=== PATIENT | female | born 1995 | race Caucasian/White ===

== ENCOUNTER 2016-06-05 14:55 | Emergency (ER) | payer MEDICAID ==
[2014-09-09 09:25] VITALS: BMI 37.6
[~2016-06-05 14:55] MED LIST: CETIRIZINE HCL5 MG PO
== END 2016-06-05 15:39 | disposition home or self-care (01) ==
LOC: D.ER 14:55
DX: K21.9 Gastro-esophageal reflux disease without esophagitis (principal); F17.200 Nicotine dependence, unspecified, uncomplicated

== ENCOUNTER → 2016-06-17 09:21 | Outpatient (CLI) | payer MEDICAID ==
[2014-09-09 09:25] VITALS: BMI 37.6
[2016-06-17 10:26] LABS: ALBUMIN 3.5 g/dL (3.4-5.0); ALKALINE PHOSPHATASE 63 U/L (46-116); ALT (SGPT) 23 U/L (10-68); BILIRUBIN - TOTAL 0.32 mg/dL (0.2-1.3); CALC OSMOLALITY 278 mosm/kg (275-300); CALCIUM 8.7 mg/dL (8.5-10.1); CARBON DIOXIDE 26.2 mmol/L (21.0-32.0); CHLORIDE - SERUM 107 mmol/L (98-107); CREATININE - SERUM 0.7 mg/dL (0.6-1.3); GLUCOSE 98 mg/dL (74-106); POTASSIUM - SERUM 4.1 mmol/L (3.5-5.1); SODIUM 140 mmol/L (136-145); UREA NITROGEN 13 mg/dL (7-18); eGFR NON AFRICAN AMERICAN > 90 mL/min (90-120)
[2016-06-17 10:33] LABS: BASOPHILS 0.5 % (0.0-2.0); EOSINOPHILS 6.9 % (0-7); HEMATOCRIT 43.4 % (36.0-48.0); HEMOGLOBIN 14.8 g/dL (12-16); IMMATURE GRANULOCYTES 0.2 % (0-5); LYMPHOCYTES 26.6 % (15-50); MCH 28.7 pg (26.0-34.0); MCHC 34.1 g/dL (31.0-37.0); MCV 84.3 fL (80.0-100.0); MEAN PLATELET VOLUME 10.2 fL (7.4-10.4); MONOCYTES 7.8 % (2-11); PLATELET COUNT 296 10x3/uL (130-400); RBC 5.15 10x6/uL (4.00-5.40); RDW 13.2 % (11.5-14.5); WBC 8.8 10x3/uL (4.8-10.8)
[2016-06-17 10:57] LABS: HCG SERUM NEGATIVE (NEGATIVE)
== END | disposition home or self-care (01) ==
LOC: D.LAB 08:30 → D.US 09:00 → D.LAB 09:21 → D.NM 09:30
PROVIDERS: Surgery
DX: R10.9 Unspecified abdominal pain (principal); R11.0 Nausea

== ENCOUNTER 2017-02-04 16:54 | Outpatient (CLI) | payer MEDICAID ==
[~2017-02-04] VITALS: Ht 165.1 cm; Wt 152.4 kg
[2017-02-04] MEDS ORDERED: PRENATAL COMPLE1 TAB PO (17:14)
[2017-02-04] MEDS ORDERED: ACETAMINOPHEN325 MG PO (17:15)
[2017-02-04 17:18] VITALS: BP 114/56; Ht 165.1 cm; Wt 152.4 kg
[2017-02-04 18:09] LABS: BASOPHILS 0.1 % (0-2); EOSINOPHILS 1.3 % (0-7); HEMATOCRIT 34.7 % (36.0-48.0); IMMATURE GRANULOCYTES 0.1 % (0-5); LYMPHOCYTES 20.9 % (15-50); MCH 29.1 pg (26.0-34.0); MCHC 34.6 g/dL (31.0-37.0); MONOCYTES 6.9 % (2-11); NEUTROPHILS 70.7 % (40-80); PLATELET COUNT 240 10x3/uL (130-400); RBC 4.13 10x6/uL (4.00-5.40); RDW 13.1 % (11.5-14.5); WBC 11.1 10x3/uL (4.8-10.8)
[2017-02-04 18:27] LABS: ALBUMIN 2.6 g/dL (3.4-5.0); ALKALINE PHOSPHATASE 65 U/L (46-116); ALT (SGPT) 21 U/L (10-68); BILIRUBIN - INDIRECT 0.11 mg/dL (0.00-1.00); BILIRUBIN - TOTAL 0.15 mg/dL (0.2-1.3); CALC OSMOLALITY 271 mosm/kg (275-300); CALCIUM 8.5 mg/dL (8.5-10.1); CARBON DIOXIDE 20.9 mmol/L (21.0-32.0); CHLORIDE - SERUM 105 mmol/L (98-107); CREATININE - SERUM 0.5 mg/dL (0.6-1.3); GLUCOSE 80 mg/dL (74-106); POTASSIUM - SERUM 3.7 mmol/L (3.5-5.1); PROTEIN - SERUM 6.4 g/dL (6.4-8.2); SODIUM 138 mmol/L (136-145); UREA NITROGEN 5 mg/dL (7-18); URIC ACID 3.1 mg/dL (2.6-7.2); eGFR NON AFRICAN AMERICAN > 90 mL/min (90-120)
[2017-02-04 18:41] LABS: BILIRUBIN - DIRECT 0.04 mg/dL (0.00-0.30)
[2017-02-06 13:53] LABS: PROTEIN - URINE 13.8 mg/dL (0.0-11.9)
== END 2017-02-05 09:10 | disposition home or self-care (01) ==
LOC: D.LDO 16:54 → D.LD 20:16 → D.LDO 02-05 09:10
PROVIDERS: Obstetrics & Gynecology
DX: O26.892 Other specified pregnancy related conditions, second trimester (principal); Z3A.24 24 weeks gestation of pregnancy

== ENCOUNTER 2017-03-25 22:24 | Outpatient (CLI) | payer MEDICAID ==
[2017-02-04 17:18] VITALS: BMI 56.0
[~2017-03-25 22:24] MED LIST changes: +ACETAMINOPHEN325 MG PO; +PRENATAL COMPLE1 TAB PO
[2017-03-25 22:41] LABS: APPEARANCE CLEAR (CLEAR); BILIRUBIN NEGATIVE (NEGATIVE); COLOR YELLOW (YELLOW); GLUCOSE NEGATIVE (NEGATIVE); KETONE NEGATIVE (NEGATIVE); NITRITE NEGATIVE (NEGATIVE); PROTEIN NEGATIVE (NEGATIVE); SPECIFIC GRAVITY 1.015 (1.005-1.020); UROBILINOGEN NORMAL (NORMAL)
[2017-03-25 22:42] LABS: BACTERIA MANY /hpf (NONE SEEN); EPITHELIAL CELLS 0-5 /hpf (0-5); RED CELLS - URINE OCC /hpf (0-5); WHITE CELLS - URINE 0-5 /hpf (0-5)
[2017-03-25 22:43] LABS: MUCUS <1+ /lpf (NONE SEEN)
== END 2017-03-25 23:20 | disposition home or self-care (01) ==
LOC: D.LDO 22:24
PROVIDERS: Obstetrics & Gynecology
DX: O26.893 Other specified pregnancy related conditions, third trimester (principal); Z3A.31 31 weeks gestation of pregnancy; R10.9 Unspecified abdominal pain

== ENCOUNTER → 2017-04-03 09:13 | Outpatient (CLI) | payer MEDICAID ==
[2017-02-04 17:18] VITALS: BMI 56.0
[~2017-04-03 09:13] MED LIST changes: +DILAUDID2 MG PO; +IBUPROFEN800 MG PO
== END | disposition home or self-care (01) ==
LOC: D.LDO 09:13
DX: O26.893 Other specified pregnancy related conditions, third trimester (principal); Z3A.00 Weeks of gestation of pregnancy not specified

== ENCOUNTER → 2017-04-17 11:54 | Outpatient (CLI) | payer MEDICAID ==
[2017-02-04 17:18] VITALS: BMI 56.0
== END | disposition home or self-care (01) ==
LOC: D.LDO 11:54
DX: O10.913 Unspecified pre-existing hypertension complicating pregnancy, third trimester (principal); Z3A.34 34 weeks gestation of pregnancy

== ENCOUNTER → 2017-04-21 11:04 | Outpatient (CLI) | payer MEDICAID ==
[2017-02-04 17:18] VITALS: BMI 56.0
== END | disposition home or self-care (01) ==
LOC: D.LDO 11:04
DX: O10.913 Unspecified pre-existing hypertension complicating pregnancy, third trimester (principal); Z3A.35 35 weeks gestation of pregnancy

== ENCOUNTER → 2017-04-24 10:11 | Outpatient (CLI) | payer MEDICAID ==
[2017-02-04 17:18] VITALS: BMI 56.0
== END | disposition home or self-care (01) ==
LOC: D.LDO 10:11
DX: O10.913 Unspecified pre-existing hypertension complicating pregnancy, third trimester (principal); Z3A.35 35 weeks gestation of pregnancy

== ENCOUNTER → 2017-04-28 14:33 | Outpatient (CLI) | payer MEDICAID ==
[2017-02-04 17:18] VITALS: BMI 56.0
== END | disposition home or self-care (01) ==
LOC: D.LDO 14:33
DX: O10.913 Unspecified pre-existing hypertension complicating pregnancy, third trimester (principal); Z3A.36 36 weeks gestation of pregnancy

== ENCOUNTER → 2017-05-01 14:15 | Outpatient (CLI) | payer MEDICAID ==
[2017-02-04 17:18] VITALS: BMI 56.0
== END | disposition home or self-care (01) ==
LOC: D.LDO 14:15
DX: O10.913 Unspecified pre-existing hypertension complicating pregnancy, third trimester (principal); Z3A.36 36 weeks gestation of pregnancy

== ENCOUNTER → 2017-05-05 11:46 | Outpatient (CLI) | payer MEDICAID ==
[2017-02-04 17:18] VITALS: BMI 56.0
[2017-05-05 12:25] LABS: PROTEIN - URINE 13.8 mg/dL (0.0-11.9)
== END | disposition home or self-care (01) ==
LOC: D.LDO 11:46
PROVIDERS: Obstetrics & Gynecology
DX: O10.913 Unspecified pre-existing hypertension complicating pregnancy, third trimester (principal); Z3A.37 37 weeks gestation of pregnancy

== ENCOUNTER → 2017-05-08 14:35 | Outpatient (CLI) | payer MEDICAID ==
[2017-02-04 17:18] VITALS: BMI 56.0
== END | disposition home or self-care (01) ==
LOC: D.LDO 14:35
DX: O10.913 Unspecified pre-existing hypertension complicating pregnancy, third trimester (principal); Z3A.37 37 weeks gestation of pregnancy

== ENCOUNTER 2017-05-15 05:31 | Inpatient (IN) | payer MEDICAID ==
[~2017-05-15] VITALS: Ht 165.1 cm; Wt 113.9 kg
[2017-05-15] VITALS (9 sets, daily range): BP systolic 111–137; BP diastolic 57–76; Ht 165.1 cm; Wt 113.9 kg
--- NOTE | ~2017-05-15 | OP ---
PATIENT NAME: RIDGE CAST MEDICAL RECORD: [id number] :[birth year] LOCATION:[facility] [id number] ADMISSION DATE:05/15/17 SURGEON: MIKAEL FRANKLIN MD DATE OF OPERATION: 05/15/2017 PREOPERATIVE DIAGNOSES: 1. , undelivered at 38 weeks and 5 days. 2. Chronic hypertension. 3. Unwanted fertility. POSTOPERATIVE DIAGNOSES: 1. Mother delivered at term. 2. Chronic hypertension. 3. unwanted fertility. PROCEDURE: 1. Repeat low transverse sections. 2. tubal ligation using a Kennedy technique. SURGEON: Mikael Franklin MD FIELD TRAFFIC INVESTIGATOR: Alfredo Dawn. ANESTHETIC: Spinal. FINDINGS: Viable female infant, vertex presentation. The weight is 7 pounds 0.08 ounces. Apgars were 9 and 9. Unremarkable-appearing uterus, tubes and ovaries bilaterally. SPECIMEN REMOVED: Placenta. SPECIMEN DISPOSITION: Discarded. ESTIMATED BLOOD LOSS: 700 cc. FLUIDS: 1500 cc lactated Ringer's with Pitocin added after delivery. URINE OUTPUT: 150 cc of clear urine. COMPLICATIONS: None. DRAINS: Turner to gravity. INDICATION: The patient is a 22-year-old female with chronic hypertension treated with Aldomet. The patient is term with unwanted fertility and a prior section. The patient is consented for repeat low transverse section. DESCRIPTION OF PROCEDURE: After informed consent was assured, the patient was taken to the operating room where anesthetic was obtained. After prepping and draping, the anesthetic was assessed and found to be adequate. The patient now has an incision made over the old scar, carried down to the underlying layer of the fascia, which was opened and the fascial incision extended. Rectus bellies were and an Long O retractor inserted and tightened. Low transverse hysterotomy was performed. Infant was delivered on to the abdomen OPERATIVE REPORT [id number] RIDGE CAST atraumatically. Cord was doubly clamped and cut and the was passed to the attendance. Placenta was delivered via Crede maneuver after obtaining cord blood sample. Uterus was exteriorized, cleared of all clot and debris and closed with a running lock stitch of chromic. Uterus was inspected and found to be hemostatic as the pelvis was irrigated. Initial sponge counts correct. The left tube was elevated, a window developed in the antimesenteric side and 2 ligatures passed through this opening. One was secured proximally, the other distally and the intervening segment of tube excised. This was repeated on the contralateral side. Again, a window was made, 2 ligatures passed through and secured proximally and distally. The intervening segment of tube was excised with Metzenbaum scissors and the ostia cauterized. Uterus was now returned to the abdomen. Pelvis was irrigated. The irrigant removed. Rectus bellies were inspected and found to be hemostatic and reapproximated with loose single interrupted stitch of chromic. The fascia was now closed with looped PDS. Subcutaneous tissues were irrigated, bleeding vessels cauterized, and the skin was reapproximated with a subcuticular stitch. Sponge, lap and needle count was correct times 2. The patient was awakened and taken to the labor and delivery for her recovery. TRANSINT:[id number] Voice Confirmation ID: [id number] DOCUMENT ID: [id number] MIKAEL FRANKLIN MD at 0637 CC: [id number] DICTATION DATE: 05/15/171925 CHARGER: 05/16/17 1200 ADM IN [facility] [address] [place] [address]
[~2017-05-15 05:31] MED LIST changes: -DILAUDID2 MG PO; -IBUPROFEN800 MG PO
[2017-05-15 11:33] LABS: HEMATOCRIT 35.2 % (36.0-48.0); HEMOGLOBIN 11.6 g/dL (12-16); MCV 82.1 fL (80.0-100.0); MEAN PLATELET VOLUME 10.4 fL (7.4-10.4); RBC 4.29 10x6/uL (4.00-5.40); RDW 13.4 % (11.5-14.5); WBC 9.4 10x3/uL (4.8-10.8)
[2017-05-16] VITALS (8 sets, daily range): BP systolic 116–143; BP diastolic 48–77
[2017-05-16 06:13] LABS: RAPID PLASMA REAGIN Non Reactive (Non Reactive)
[2017-05-16 17:04] LABS: BASOPHILS 0 % (0-2); EOSINOPHILS 0.3 % (0-7); HEMATOCRIT 31.7 % (36.0-48.0); HEMOGLOBIN 10.6 g/dL (12-16); IMMATURE GRANULOCYTES 0.3 % (0-5); LYMPHOCYTES 13.2 % (15-50); MCH 27.4 pg (26.0-34.0); MCHC 33.4 g/dL (31.0-37.0); MCV 81.9 fL (80.0-100.0); MEAN PLATELET VOLUME 10.3 fL (7.4-10.4); MONOCYTES 10.1 % (2-11); NEUTROPHILS 76.1 % (40-80); PLATELET COUNT 246 10x3/uL (130-400); RBC 3.87 10x6/uL (4.00-5.40); RDW 13.4 % (11.5-14.5)
[2017-05-16 17:12] LABS: WBC 13.5 10x3/uL (4.8-10.8)
[2017-05-16 17:21] LABS: ALBUMIN 2.3 g/dL (3.4-5.0); ALKALINE PHOSPHATASE 119 U/L (46-116); ALT (SGPT) 14 U/L (10-68); BILIRUBIN - TOTAL 0.24 mg/dL (0.2-1.3); CALC OSMOLALITY 275 mosm/kg (275-300); CALCIUM 8.5 mg/dL (8.5-10.1); CARBON DIOXIDE 25.4 mmol/L (21.0-32.0); CHLORIDE - SERUM 105 mmol/L (98-107); CREATININE - SERUM 0.7 mg/dL (0.6-1.3); GLUCOSE 92 mg/dL (74-106); POTASSIUM - SERUM 3.8 mmol/L (3.5-5.1); PROTEIN - SERUM 5.7 g/dL (6.4-8.2); SODIUM 140 mmol/L (136-145); UREA NITROGEN 5 mg/dL (7-18); eGFR NON AFRICAN AMERICAN > 90 mL/min (90-120)
[2017-05-17 03:26] VITALS: BP 119/65
[2017-05-17 07:45] VITALS: BP 101/61
[2017-05-17 12:30] VITALS: BP 104/58
[2017-05-17] MEDS ORDERED: DILAUDID2 MG PO (14:58)
[2017-05-17] MEDS ORDERED: IBUPROFEN800 MG PO (15:00)
[2017-05-17 16:15] VITALS: BP 123/78
== END 2017-05-17 20:00 | disposition home or self-care (01) | DRG 765 ==
LOC: D.LD 05:31 → D.WS 10:22 → D.LD 10:22 → D.WS 19:43 → D.LD 05-16 15:32
PROVIDERS: Obstetrics & Gynecology
PROC: 10D00Z1 Extraction of Products of Conception, Low, Open Approach (ICD-10-PCS; principal; 2017-05-15 18:00)
PROC: 0UB70ZZ Excision of Bilateral Fallopian Tubes, Open Approach (ICD-10-PCS; 2017-05-15 18:00)
DX: O34.211 Maternal care for low transverse scar from previous cesarean delivery (principal); O10.92 Unspecified pre-existing hypertension complicating childbirth; Z3A.38 38 weeks gestation of pregnancy; Z30.2 Encounter for sterilization; Z37.0 Single live birth

== ENCOUNTER 2017-09-02 22:38 | Emergency (ER) | payer MEDICAID ==
[2017-05-15 11:21] VITALS: BMI 41.8
[~2017-09-02 22:38] MED LIST changes: +DILAUDID2 MG PO; +IBUPROFEN800 MG PO
== END 2017-09-03 01:55 | disposition home or self-care (01) ==
LOC: D.ER 22:38
DX: K02.9 Dental caries, unspecified (principal); K08.89 Other specified disorders of teeth and supporting structures; K21.9 Gastro-esophageal reflux disease without esophagitis

== ENCOUNTER 2017-09-23 00:50 | Emergency (ER) | payer MEDICAID ==
[2017-05-15 11:21] VITALS: BMI 41.8
== END 2017-09-23 01:15 | disposition home or self-care (01) ==
LOC: D.ER 00:50
DX: K08.89 Other specified disorders of teeth and supporting structures (principal); K21.9 Gastro-esophageal reflux disease without esophagitis

== ENCOUNTER 2018-02-20 07:32 | Emergency (ER) | payer MEDICAID ==
[~2018-02-20] VITALS: Ht 165.1 cm; Wt 101.8 kg
[2018-02-20 07:37] VITALS: Ht 165.1 cm; Wt 101.8 kg
[2018-02-20] MEDS ORDERED: VENTOLIN HFA18 GM INH (08:52)
[2018-02-20] MEDS ORDERED: LEVAQUIN250 MG PO (08:52)
[2018-02-20 09:07] LABS: BASOPHILS 0.2 % (0-2); EOSINOPHILS 2.1 % (0-7); HEMATOCRIT 38.3 % (36.0-48.0); HEMOGLOBIN 13.2 g/dL (12-16); IMMATURE GRANULOCYTES 0.2 % (0-5); LYMPHOCYTES 11.9 % (15-50); MCH 28.5 pg (26.0-34.0); MCHC 34.5 g/dL (31.0-37.0); MCV 82.7 fL (80.0-100.0); MEAN PLATELET VOLUME 10.1 fL (7.4-10.4); MONOCYTES 8.4 % (2-11); NEUTROPHILS 77.2 % (40-80); PLATELET COUNT 263 10x3/uL (130-400); RBC 4.63 10x6/uL (4.00-5.40); RDW 13.4 % (11.5-14.5); WBC 13.7 10x3/uL (4.8-10.8)
[2018-02-20 09:25] LABS: CALC OSMOLALITY 273 mosm/kg (275-300); CALCIUM 8.4 mg/dL (8.5-10.1); CARBON DIOXIDE 24.1 mmol/L (21.0-32.0); CHLORIDE - SERUM 105 mmol/L (98-107); CREATININE - SERUM 0.7 mg/dL (0.6-1.3); GLUCOSE 99 mg/dL (74-106); POTASSIUM - SERUM 3.7 mmol/L (3.5-5.1); SODIUM 138 mmol/L (136-145); TROPONIN-I < 0.017 ng/mL (0.000-0.060); UREA NITROGEN 8 mg/dL (7-18); eGFR NON AFRICAN AMERICAN > 90 mL/min (90-120)
[2018-02-20 09:46] VITALS: BP 129/75
== END 2018-02-20 09:47 | disposition home or self-care (01) ==
LOC: D.ER 07:32
PROVIDERS: Emergency Medicine
DX: J20.9 Acute bronchitis, unspecified (principal); R09.89 Other specified symptoms and signs involving the circulatory and respiratory systems

== ENCOUNTER 2018-03-03 21:48 | Inpatient (IN) | payer MEDICAID ==
[~2018-03-03] VITALS: Ht 165.1 cm; Wt 99.8 kg
--- NOTE | ~2018-03-03 | MORECARE ---
CASE MANAGEMENT DISCHARGE SUMMARY PATIENT: RIDGE CAST UNIT: [id number] ADM DATE: 03/04/18 AGE: 22 : [birth year] SEX: F ROOM/BED: D.2224 AUTHOR: SHENG GARVIN PHYSICIAN: REFERRING PHYSICIAN: OG PRECIADO MD DATE OF SERVICE: 03/05/18 Discharge Plan Patient Name: RIDGE CAST Facility: [facility]:[place] : 1995 Planned Disposition: Home Anticipated Discharge Date: 03/05/18 Discharge Date: Expected LOS: 1 Initial Reviewer: [email or web address] Initial Review Date: 03/05/2018 Generated: 03/05/18 2:11 pm Comments DCP- Discharge Planning Updated by [email or web address]: Aneta Pearson on 03/05/18 12:[address] Patient Name: RIDGE CAST Admission Status: ER Accout number: [id number] Admission Date: 03-04-2018 : 1995 Admission Diagnosis: Attending: OG PRECIADO Current LOS: 1 Anticipated DC Date: 03-05-2018 Planned Disposition: Home Primary Insurance: [place] [employer] Discharge Planning Comments: CM MET WITH PATIENT ABOUT DC PLANNING. STATES PLANS TO DISCHARGE HOME TODAY, STATES IS WAITING ON DC PAPERS. DENIES ANY NEEDS. CM WILL FOLLOW AND ASSIST NEEDED WITH DC PLANNING/NEEDS. Clinical Nurse Specialist: Aneta Pearson DCPIA - Discharge Planning Initial Assessment Updated by [id number]: Aneta Pearson on 03/05/18 1:05 pm * Is the patient Alert and Oriented? Yes * PCP LISA * Pharmacy [facility] * Preadmission Environment Home with Family * ADLs Independent * Additional services required to return to the preadmission environment? No * Can the patient safely return to the preadmission environment? Yes * Has this patient been hospitalized within the prior 30 days at any hospital? No Patient Name: RIDGE CAST Page 19407 at 1311 All edits/amendments must be made on the electronic document DICTATION DATE: 03/05/18 1310 LABOR ECONOMIST: GURPREET 03/05/18 1310 RPT#: [id number] DC DATE: STATUS: ADM IN [facility] [address] [place] [address] END OF REPORT
--- NOTE | ~2018-03-03 | EC ---
PATIENT:RIDGE CAST DATE OF SERVICE: 03/04/18 SEX: F MEDICAL RECORD: [id number] DATE OF : [birth year] LOCATION:D.MS [id number] AGE OF PATIENT: 22 ADMISSION DATE: 03/04/18 REFERRING PHYSICIAN: INTERPRETING PHYSICIAN: RENETTA ALAMO MD ECHOCARDIOGRAM REPORT ECHO CHARGES 4 ECHO COMPLETE Date: 03/04/18 CLINICAL DIAGNOSIS: FEBRILE ILLNESS ECHOCARDIOGRAPHIC MEASUREMENTS (adult normal given) AC root (d.<3.7cm) 2.5 cm LV Septum d (<1.2 cm> 1.1 cm Valve Excursion 1.9 cm LV Septum (systole) 1.2 cm Left Atria (s.<4.0cm> 3.6 cm LVPW d(<1.2cm) 0.8 cm RV (d.<2.3cm) 3.6 cm LVPW (sytole) 1.2 cm LV diastole(<5.6CM) 4.9 cm MV E-F(>70mm/sec) cm LV systole 3.9 cm LVOT Diameter 1.9 cm MV exc.(>10mm) cm Est.ejection fraction (50-75%) % DOPPLER: LVIT cm/sec A 53 cm/sec E 93 cm/sec LA cm/sec RVSP 16.8 mmHg LVOT 87 cm/sec AOP1/2T m/s Asc. Ao 115 cm/sec RVOT 69 cm/sec RA cm/sec PA 92 cm/sec AV Gradient Peak 5.3 mmHg AV Mean 3.0 mmHg AV Area 1.8 cm MV Gradient Peak 4.1 mmHg MV Mean 1.6 mmHg MV Area cm COMMENTS: Food Runner: Karena VERNON [place] Press Operator: Edna Hollins TAPE# PACS Pericardial Effusion N DATE OF SERVICE: FINDINGS: 1. Left ventricular chamber size is within normal limits. Left ventricular systolic function is normal. Overall ejection fraction estimated at 65%. 2. Left atrium, right atrium, and right ventricular chamber sizes are within normal limits. 3. Valvular structures have normal structure and motion. 4. Doppler interrogation reveals no significant valvular insufficiency or stenosis. ECHOCARDIOGRAM REPORT [id number] RIDGE CAST 5. No evidence of pericardial effusion or left ventricular thrombus. TRANSINT:[id number] Voice Confirmation ID: [id number] DOCUMENT ID: [id number] RENETTA ALAMO MD at 1454 CC: [id number] DICTATION DATE: 03/06/18 1341 EMPLOYMENT ATTORNEY: 03/06/18 1406 DIS IN 03/05/18 [id number] [place] [address]
--- NOTE | ~2018-03-03 | MORECARE ---
CASE MANAGEMENT DISCHARGE SUMMARY PATIENT: RIDGE CAST UNIT: [id number] ADM DATE: 03/04/18 AGE: 22 : [birth year] SEX: F ROOM/BED: D.2224 AUTHOR: SHENG GARVIN PHYSICIAN: REFERRING PHYSICIAN: OG PRECIADO MD DATE OF SERVICE: 03/09/18 Discharge Plan Patient Name: RIDGE CAST Facility: [facility]:[place] : 1995 Planned Disposition: Home Anticipated Discharge Date: 03/05/18 Discharge Date: 03/05/2018 Expected LOS: 1 Initial Reviewer: [email or web address] Initial Review Date: 03/05/2018 Generated: 03/09/18 9:25 am Comments DCP- Discharge Planning Updated by [email or web address]: Aneta Pearson on 03/05/18 12:[address] Patient Name: RIDGE CAST Admission Status: ER Accout number: [id number] Admission Date: 03-04-2018 : 1995 Admission Diagnosis: Attending: OG PRECIADO Current LOS: 1 Anticipated DC Date: 03-05-2018 Planned Disposition: Home Primary Insurance: [place] [employer] Discharge Planning Comments: CM MET WITH PATIENT ABOUT DC PLANNING. STATES PLANS TO DISCHARGE HOME TODAY, STATES IS WAITING ON DC PAPERS. DENIES ANY NEEDS. CM WILL FOLLOW AND ASSIST NEEDED WITH DC PLANNING/NEEDS. Director Of Labor Relations: Aneta Pearson DCPIA - Discharge Planning Initial Assessment Updated by [email or web address]: Aneta Pearson on 03/05/18 1:05 pm * Is the patient Alert and Oriented? Yes * PCP LISA * Pharmacy [facility] * Preadmission Environment Home with Family * ADLs Independent * Additional services required to return to the preadmission environment? No * Can the patient safely return to the preadmission environment? Yes * Has this patient been hospitalized within the prior 30 days at any hospital? No Last DP export: 03/05/18 12:11 Patient Name: RIDGE CAST Page [phone] at 0826 All edits/amendments must be made on the electronic document DICTATION DATE: 03/09/18 0825 MARKETING OUTREACH COORDINATOR: GURPREET 03/09/18 0825 RPT#: [id number] DC DATE:03/05/18 STATUS: DIS IN [facility] [address] [place] [address] END OF REPORT
[~2018-03-03 21:48] MED LIST changes: +LEVAQUIN250 MG PO; +VENTOLIN HFA18 GM INH
[2018-03-03 22:29] LABS: BASOPHILS 0.1 % (0-2); EOSINOPHILS 0.1 % (0-7); HEMATOCRIT 41.1 % (36.0-48.0); HEMOGLOBIN 14.3 g/dL (12-16); IMMATURE GRANULOCYTES 0.3 % (0-5); LYMPHOCYTES 4.1 % (15-50); MCH 28.7 pg (26.0-34.0); MCHC 34.8 g/dL (31.0-37.0); MCV 82.4 fL (80.0-100.0); MEAN PLATELET VOLUME 10.1 fL (7.4-10.4); MONOCYTES 3.9 % (2-11); NEUTROPHILS 91.5 % (40-80); PLATELET COUNT 303 10x3/uL (130-400); RBC 4.99 10x6/uL (4.00-5.40); RDW 12.9 % (11.5-14.5); WBC 13.9 10x3/uL (4.8-10.8)
[2018-03-03 22:37] LABS: ALBUMIN 3.5 g/dL (3.4-5.0); ALKALINE PHOSPHATASE 67 U/L (46-116); ALT (SGPT) 21 U/L (10-68); CALC OSMOLALITY 272 mosm/kg (275-300); CALCIUM 8.5 mg/dL (8.5-10.1); CHLORIDE - SERUM 102 mmol/L (98-107); CREATININE - SERUM 0.8 mg/dL (0.6-1.3); GLUCOSE 121 mg/dL (74-106); LIPASE 122 U/L (73-393); POTASSIUM - SERUM 3.5 mmol/L (3.5-5.1); SODIUM 137 mmol/L (136-145); UREA NITROGEN 8 mg/dL (7-18); eGFR NON AFRICAN AMERICAN > 90 mL/min (90-120)
[2018-03-03 22:52] LABS: APPEARANCE CLOUDY (CLEAR); BILIRUBIN NEGATIVE (NEGATIVE); COLOR YELLOW (YELLOW); GLUCOSE NEGATIVE (NEGATIVE); KETONE NEGATIVE (NEGATIVE); NITRITE NEGATIVE (NEGATIVE); PROTEIN NEGATIVE (NEGATIVE); SPECIFIC GRAVITY 1.025 (1.005-1.020); UROBILINOGEN NORMAL (NORMAL)
[2018-03-03 22:53] LABS: BACTERIA NONE SEEN /hpf (NONE SEEN); EPITHELIAL CELLS 0-5 /hpf (0-5); RED CELLS - URINE NONE SEEN /hpf (0-5); WHITE CELLS - URINE RARE /hpf (0-5)
[2018-03-03 22:55] LABS: HCG URINE NEGATIVE (NEGATIVE)
[2018-03-03 23:35] LABS: UDS - AMPHET NEGATIVE QUAL (NEGATIVE); UDS - BARB NEGATIVE QUAL (NEGATIVE); UDS - BENZO NEGATIVE QUAL (NEGATIVE); UDS - COCAINE NEGATIVE QUAL (NEGATIVE); UDS - OPIATE NEGATIVE QUAL (NEGATIVE); UDS - PCP NEGATIVE QUAL (NEGATIVE); UDS - THC NEGATIVE QUAL (NEGATIVE)
[2018-03-04 00:52] VITALS: BP 112/65; BMI 36.6
[2018-03-04 05:51] VITALS: BP 102/48
[2018-03-04 09:02] VITALS: BP 101/47
[2018-03-04 10:27] LABS: BASOPHILS 0.1 % (0-2); EOSINOPHILS 1.3 % (0-7); HEMATOCRIT 36.3 % (36.0-48.0); HEMOGLOBIN 12.4 g/dL (12-16); IMMATURE GRANULOCYTES 0.3 % (0-5); LYMPHOCYTES 21.1 % (15-50); MCH 28.2 pg (26.0-34.0); MCHC 34.2 g/dL (31.0-37.0); MCV 82.7 fL (80.0-100.0); MONOCYTES 5.9 % (2-11); NEUTROPHILS 71.3 % (40-80); RBC 4.39 10x6/uL (4.00-5.40)
[2018-03-04 10:28] LABS: PLATELET COUNT 226 10x3/uL (130-400); WBC 7.4 10x3/uL (4.8-10.8)
[2018-03-04 13:03] VITALS: BP 127/67
[2018-03-04 16:14] LABS: GLUCOSE - CSF 60 MG/DL (40-75); PROTEIN - CSF 51 MG/DL (12-60)
[2018-03-04 16:26] LABS: APPEARANCE - CSF COLORLESS
[2018-03-04 16:32] LABS: RBC - CSF 61 cmm (0-0)
[2018-03-04 21:24] VITALS: BP 99/57
[2018-03-05 00:36] VITALS: BP 113/63
[2018-03-05 04:31] LABS: BASOPHILS 0.3 % (0-2); EOSINOPHILS 4.2 % (0-7); HEMATOCRIT 33.1 % (36.0-48.0); HEMOGLOBIN 11.1 g/dL (12-16); IMMATURE GRANULOCYTES 0.2 % (0-5); MCH 27.7 pg (26.0-34.0); MCHC 33.5 g/dL (31.0-37.0); MCV 82.5 fL (80.0-100.0); MEAN PLATELET VOLUME 10.3 fL (7.4-10.4); MONOCYTES 10.9 % (2-11); NEUTROPHILS 48.4 % (40-80); PLATELET COUNT 220 10x3/uL (130-400); RBC 4.01 10x6/uL (4.00-5.40); WBC 6.3 10x3/uL (4.8-10.8)
[2018-03-05 04:51] LABS: ALKALINE PHOSPHATASE 44 U/L (46-116); CALC OSMOLALITY 284 mosm/kg (275-300); CALCIUM 7.8 mg/dL (8.5-10.1); CARBON DIOXIDE 24.5 mmol/L (21.0-32.0); CHLORIDE - SERUM 110 mmol/L (98-107); CREATININE - SERUM 0.6 mg/dL (0.6-1.3); GLUCOSE 103 mg/dL (74-106); POTASSIUM - SERUM 3.3 mmol/L (3.5-5.1); SODIUM 144 mmol/L (136-145); UREA NITROGEN 6 mg/dL (7-18); eGFR NON AFRICAN AMERICAN > 90 mL/min (90-120)
[2018-03-05 04:55] LABS: ALBUMIN 2.5 g/dL (3.4-5.0); ALT (SGPT) 80 U/L (10-68); PROTEIN - SERUM 5.8 g/dL (6.4-8.2)
[2018-03-05 05:19] VITALS: BP 99/51
[2018-03-05 09:16] VITALS: BP 119/68
[2018-03-05 11:50] VITALS: Ht 165.1 cm; Wt 99.8 kg
[2018-03-05] MEDS ORDERED: MONODOX100 MG PO (12:10)
[2018-03-06 13:17] LABS: RMSF IGM 1.16 index (0.00-0.89)
[2018-03-06 15:26] LABS: EHRLICHIA CHAFF IGG Negative (Neg:<1:64); EHRLICHIA CHAFF IGM Negative (Neg:<1:20); HGE IGG TITER Negative (Neg:<1:64); HGE IGM TITER Negative (Neg:<1:20)
[2018-03-10 15:25] LABS: F. TULARENSIS - IGG Negative (()); F. TULARENSIS - IGM Negative (())
== END 2018-03-05 15:00 | disposition home or self-care (01) | DRG 640 ==
LOC: D.ER 21:48 → D.MS 23:47 → OBSVTIME 23:47 → D.MS 23:47
PROVIDERS: Emergency Medicine; Family Medicine
PROC: 009U3ZX Drainage of Spinal Canal, Percutaneous Approach, Diagnostic (ICD-10-PCS; principal; 2018-03-04)
PROC: B01B1ZZ Fluoroscopy of Spinal Cord using Low Osmolar Contrast (ICD-10-PCS; 2018-03-04)
DX: E86.0 Dehydration (principal); G93.41 Metabolic encephalopathy; R53.2 Functional quadriplegia; F17.213 Nicotine dependence, cigarettes, with withdrawal; R50.9 Fever, unspecified; J20.9 Acute bronchitis, unspecified; E87.6 Hypokalemia; F32.9 Major depressive disorder, single episode, unspecified